=== PATIENT | male | born 1995 | race Caucasian/White ===

== ENCOUNTER 2017-06-29 20:53 | Emergency (ER) | payer OTHER ==
[2017-06-29 21:02] VITALS: BP 157/88; PULSE 81; TEMP 98.6; BMI 29.5
--- NOTE | 2017-06-29 21:02 | PDOC ---
Rapid Medical Evaluation Chief Complaint: Rash Time Seen by Provider: 06/29/17 21:01 Medical Evaluation: Allergies Allergy/AdvReac Type Severity Reaction Status Date / Time peanut [Peanut] Allergy Severe Difficulty Verified 06/29/17 20:59 Breathing No Known Drug Allergies Allergy Verified 06/29/17 20:59 I have performed a brief in-person evaluation of this patient. The patient presents with a chief complaint of: rash to right small toe. he thinks it's fungus Pertinent physical exam findings: none I have ordered the following: nothing The patient will proceed to the ED for further evaluation.
--- NOTE | 2017-06-29 21:33 | PDOC ---
History of Present Illness - General History Source: Patient Exam Limitations: No Limitations - History of Present Illness Initial Comments: 06/29/17 22:01 The patient is a 21 year old male with no significant PMH who presents to the emergency department with left toe pain for 1 day. The patient reports that he has been experiencing left fifth toe swelling. The patient also reports that he noticed a sort of skin abnormality on his left fifth toe. The patient denies any foot injury. He denies any pain at time of exam. 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 The patient reports that he experiences general sweating in his feet regularly. He reports that he only experienced pain to his left fifth toe when walking. The patient denies any numbness, weakness or tingling sensation in his foot. The patient denies any other complaints. <Arias Choudhary - Last Filed: 06/29/17 22:01> <Matilde Elias - Last Filed: 06/29/17 22:52> - General Chief Complaint: Rash Stated Complaint: PAIN Time Seen by Provider: 06/29/17 21:01 Past History <Arias Choudhary - Last Filed: 06/29/17 22:01> - Past Medical History Anemia: No Asthma: Yes COPD: No Diabetes: No HTN: No Seizures: No - Surgical History Abdominal Surgery: No - Suicide/Smoking/Psychosocial Hx Smoking Status: No Smoking History: Never smoked Have you smoked in the past 12 months: No Number of Cigarettes Smoked Daily: 0 Information on smoking cessation initiated: No Hx Alcohol Use: No Drug/Substance Use Hx: No Substance Use Type: Alcohol <Matilde Elias - Last Filed: 06/29/17 22:52> - Past Medical History Allergies/Adverse Reactions: Allergies Allergy/AdvReac Type Severity Reaction Status Date / Time peanut [Peanut] Allergy Severe Difficulty Verified 06/29/17 20:59 Breathing No Known Drug Allergies Allergy Verified 06/29/17 20:59 Home Medications: Ambulatory Orders Clotrimazole [Lotrimin 1% Cream -] 1 applic TP BID #1 tube 06/29/17 Review of Systems - Review of Systems Able to Perform ROS?: Yes Comments:: 06/29/17 22:04 General: No fevers or chills, no weakness, no weight loss HEENT: No change in vision. No sore throat,. No ear pain CardioVascular: No chest pain or shortness of breath Respiratory:No cough, or wheezing. Gastrointestinal: no nausea, vomiting, diarrhea or constipation, No rectal bleeding Genitourinary: No dysuria, hematuria, or frequency Musculoskeletal:(+)left toe pain and swelling. Neurologic: No headache, vertigo, dizziness or loss of consciousness Psychiatric: nor depression Skin: No rashes or easy bruising Endocrine: no increased thirst or abnormal weight change Allergic: no skin or latex allergy All other systems reviewed and normal <Arias Choudhary - Last Filed: 06/29/17 22:01> *Physical Exam - Vital Signs Last Vital Signs Temp Pulse Resp BP Pulse Ox 98.6 F 81 16 157/88 100 06/29/17 20:59 06/29/17 20:59 06/29/17 20:59 06/29/17 20:59 06/29/17 20:59 - Physical Exam Comments: 06/29/17 22:05 GENERAL: The patient is awake, alert, and fully oriented, in no acute distress. HEAD: Normal with no signs of trauma. EYES: Pupils equal, round and reactive to light, extraocular movements intact, sclera anicteric, conjunctiva clear. EXTREMITIES: (+)cracking under left 5th toe with fungus in skin. Normal range of motion. NEUROLOGICAL: Normal speech, normal gait. PSYCH: Normal mood, normal affect. SKIN: Warm, Dry, normal turgor, no rashes or lesions noted. <Arias Choudhary - Last Filed: 06/29/17 22:01> - Vital Signs Last Vital Signs Temp Pulse Resp BP Pulse Ox 98.6 F 81 16 157/88 100 06/29/17 20:59 06/29/17 20:59 06/29/17 20:59 06/29/17 20:59 06/29/17 20:59 <Matilde Elias - Last Filed: 06/29/17 22:52> Medical Decision Making - Medical Decision Making 06/29/17 22:51 A portion of this note was documented by scribe services under my direction. I have reviewed the details of the note, within reason, and agree with the documentation with the following case summary and management plan written by me. Correction to the history of present illness and physical exam, it is the right fifth pinky toe. Patient is a 21-year-old male who presents to emergency department for right fifth toe pressure. On exam patient has skin cracking under the right fifth toe consistent with athlete's foot. No other signs of infection or cellulitis. We'll discharge home with Lotramin cream and podiatry follow-up. Podiatry referral given. Return precautions given. Patient received all discharge instructions and all questions were answered. <Matilde Elias - Last Filed: 06/29/17 22:52> *DC/Admit/Observation/Transfer - Attestations Scribe Attestion: 06/29/17 22:05 Documentation prepared by Arias Choudhary, acting as medical van driver for BORIS Sandra. <Arias Choudhary - Last Filed: 06/29/17 22:01> - Discharge Dispostion Admit: No <Matilde Elias - Last Filed: 06/29/17 22:52> Diagnosis at time of Disposition: Athlete's foot on right - Discharge Dispostion Disposition: HOME Condition at time of disposition: Stable - Prescriptions Prescriptions: Clotrimazole [Lotrimin 1% Cream -] 1 applic TP BID #1 tube - Referrals Referrals: Lars Mims MD [Staff Physician] - - Patient Instructions Printed Discharge Instructions: DI for Athlete's Foot Additional Instructions: You have a fungal infection under your right fifth toe. Please use the clomitrazole cream twice a day for at least 2 weeks. Keep the foot and dry. You may use foot powders, change your socks. Rotate shoes or where shoes that breathe (mesh lining ex) If this is not getting better within 2 weeks please follow up with podiatry. A referral has been provided for you. Return to the emergency department if you develop worsening pain, fevers, chills , or have any changes in your symptoms.
== END 2017-06-29 21:41 | disposition home or self-care (01) ==
LOC: JERFT 20:53
DX: B35.3 Tinea pedis (principal)
CPT/HCPCS: 99281-25

== ENCOUNTER 2019-01-09 20:10 | Emergency (ER) | payer OTHER ==
[2019-01-09 20:22] VITALS: TEMP 98.7; BMI 34.7
[2019-01-09] MEDS ORDERED: SODIUM CHLORIDE 0.9% 500 ML INFUS.BAG IV ONE (22:43)
--- NOTE | 2019-01-09 23:05 | PDOC ---
History of Present Illness - General Chief Complaint: Pain Stated Complaint: ABD PAIN / FEVER Time Seen by Provider: 01/09/19 22:25 - History of Present Illness Initial Comments: Mr. Joseph is a 23 y/o male with no significant PMH presenting for subjective fever, abdominal pain, and diarrhea for the past two days. Reports that all of this started on Thursday. Reports pain in BLQ, worse in the RLQ. Denies sick contacts. Denies nausea/vomiting. Denies constipation. Denies chest pain/shortness of breath. Denies leg swelling. Denies urinary symptoms. SurgHx: No prior abdominal surgeries. SocHx: Smokes tobacco. Past History - Past Medical History Allergies/Adverse Reactions: Allergies Allergy/AdvReac Type Severity Reaction Status Date / Time peanut [Peanut] Allergy Severe Difficulty Verified 06/29/17 20:59 Breathing No Known Drug Allergies Allergy Verified 06/29/17 20:59 nut - unspecified Allergy Verified 01/09/19 20:16 Home Medications: Ambulatory Orders Clotrimazole [Lotrimin 1% Cream -] 1 applic TP BID #1 tube 06/29/17 Levofloxacin [Levaquin] 500 mg PO DAILY #7 tablet 01/10/19 Metronidazole 250 mg PO TID #21 tablet 01/10/19 Anemia: No Asthma: No COPD: No Diabetes: No HTN: No Seizures: No - Surgical History Abdominal Surgery: No - Psycho Social/Smoking Cessation Hx Smoking Status: No Smoking History: Current some day smoker Have you smoked in the past 12 months: No Number of Cigarettes Smoked Daily: 0 Information on smoking cessation initiated: Yes Hx Alcohol Use: Yes ("social") Drug/Substance Use Hx: No Substance Use Type: Alcohol Abd/GI Specific PMHX - Complaint Specific PMHX Colitis: No Diverticulitis: No Gall Bladder Disease: No GERD: No Hepatitis: No Irritable Bowel Synd (IBS): No Pancreatitis: No GI Ulcer Disease: No Review of Systems - Review of Systems Comments:: GENERAL/CONSTITUTIONAL: Reports fever and chills. No weakness._ HEAD, EYES, EARS, NOSE AND THROAT: No change in vision. No change in hearing. No sore throat._ CARDIOVASCULAR: No chest pain or shortness of breath_ RESPIRATORY: Denies cough, hemoptysis. GASTROINTESTINAL: No nausea, vomiting, constipation. Reports abdominal pain. Reports diarrhea. GENITOURINARY: No dysuria, frequency, or change in urination. MUSCULOSKELETAL: No joint or muscle swelling or pain. No neck or back pain._ SKIN: No rash_ NEUROLOGIC: No headache, vertigo, loss of consciousness, or change in strength/ sensation._ ENDOCRINE: No increased thirst. No abnormal weight change_ HEMATOLOGIC/LYMPHATIC: No anemia, easy bleeding, or history of blood clots._ ALLERGIC/IMMUNOLOGIC: No hives or skin allergy. *Physical Exam - Vital Signs Last Vital Signs Temp Pulse Resp BP Pulse Ox 98.7 F 109 H 20 134/86 96 01/09/19 20:16 01/09/19 20:16 01/09/19 20:16 01/09/19 20:16 01/09/19 20:16 - Physical Exam Comments: GENERAL: Awake, alert, and oriented to person/place/time, in no acute distress_ HEAD: No signs of trauma, normocephalic, atraumatic _ EYES: PERRLA, EOMI, sclera anicteric, conjunctiva clear_ ENT: Hearing grossly normal, nares patent, oropharynx clear without exudates. No uvular deviation. Moist mucosa_ NECK: Normal ROM, supple, no lymphadenopathy, JVD, or masses_ LUNGS: No distress, speaks in full sentences, clear to auscultation bilaterally _ HEART: Regular rate and rhythm, normal S1 and S2, no murmurs appreciated, peripheral pulses normal and equal bilaterally._ ABDOMEN: Soft, TTP RLQ > LLQ, normoactive bowel sounds. No guarding, no rebound. No masses_ EXTREMITIES: Normal inspection, Normal range of motion, no edema. No clubbing or cyanosis_ NEUROLOGICAL: Cranial nerves II through XII grossly intact. Normal speech, normal gait, no focal sensorimotor deficits _ SKIN: Warm, Dry, normal turgor, no rashes or lesions noted_ ED Treatment Course - LABORATORY CBC & Chemistry Diagram: 01/09/19 23:10 01/09/19 23:10 Medical Decision Making - Medical Decision Making 01/09/19 23:00 23M no PMH presenting with 2 days of fever, abdominal pain, diarrhea. No nausea/ vomiting. -cbc, cmp -fluids 01/09/19 23:50 Oral temp 102.8 -ct abd w/ IV contrast -tylenol 01/09/19 23:58 Labs reviewed. WBC wnl. 01/10/19 00:00 Pt signed out to Dr. De La Torre. Discharge - Discharge Information Problems reviewed: Yes Clinical Impression/Diagnosis: Abdominal pain Qualifiers: Abdominal location: lower abdomen, unspecified Qualified Code(s): R10.30 - Lower abdominal pain, unspecified Condition: Stable Disposition: HOME - Additional Discharge Information Prescriptions: Levofloxacin [Levaquin] 500 mg PO DAILY #7 tablet Metronidazole 250 mg PO TID #21 tablet - Follow up/Referral Referrals: [facility] [place] [facility] [Provider Group] Dayron Jay DO [Staff Physician] - - Patient Discharge Instructions Patient Printed Discharge Instructions: DI for Abdominal Pain-Adult Additional Instructions: You were evaluated and treated in the Emergency Department. You were provided a copy of your CT scan report. FOLLOW UP WITH YOUR PRIMARY CARE DOCTOR IN THE NEXT 1-3 DAYS. We have referred you to the [facility] should you need a primary care doctor; you may call and schedule an appointment at the number provided. FOLLOW UP WITH A GI DOCTOR IN THE NEXT 1-3 DAYS. We have referred you to Dr. Jay (GI) who you can call and schedule an appointment with. We sent medications to your pharmacy, [facility] and [place] in the [place]. Please pick them up and take as directed. IMMEDIATELY RETURN TO THE NEAREST EMERGENCY DEPARTMENT IF YOU EXPERIENCE: - WORSENING PAIN AND/OR SYMPTOMS - HIGH FEVER - INABILITY TO EAT OR DRINK - ANYTHING THAT CONCERNS YOU - Post Discharge Activity Work/Back to School Note: Back to Work
--- NOTE | 2019-01-09 23:18 | PDOC ---
Documentation entered by Elsa Meza SCRIBE, acting as scribe for Gina Santos MD. Gina Santos MD: This documentation has been prepared by the anandibe, Elsa Meza SCRIBE, under my direction and personally reviewed by me in its entirety. I confirm that the documentation accurately reflects all work, treatment, procedures, and medical decision making performed by me. Attending Attestation - Resident Resident Name: Khoa Ham - ED Attending Attestation I have performed the following: I have examined & evaluated the patient, The case was reviewed & discussed with the resident, I agree w/resident's findings & plan, Exceptions are as noted - HPI HPI: 01/09/19 23:04 The patient is a 23-year-old male with no significant past medical history who presents to the emergency department with 2 days of diarrhea, abdominal pain, and subjective fever. The patient presents with intermittent episodes of RLQ pain thats aggravated with turning to the side, associated with diarrhea and subjective fever. The patient reports he has episodes of loose stool, denies melena or hematochezia. The patient reports he was seen at an Urgent Care from where he was sent to the ER for r/o appendicitis. Denies nausea, vomiting, sick contact, or abdominal surgeries. - Physicial Exam PE: 01/09/19 23:08 GENERAL: Well-appearing, well-nourished. No apparent distress. HEENT: Normocephalic, atraumatic. PERRL, EOM intact. NECK: supple , no JVD. CARDIOVASCULAR: Normal S1, S2. Regular rate and rhythm. PULMONARY: Clear to auscultation bilaterally. ABDOMEN: Soft, non-distended, non-tender. No rebound or guarding. No flank pain. EXTREMITIES: Normal ROM in all four extremities. No gross deformities. SKIN: Warm, dry. No rash NEUROLOGICAL: No focal neurological deficits. - Medical Decision Making 01/09/19 23:55 Repeat temp is 102.8 orally and Tylenol was given ct scan abd/pel pending 01/10/19 02:12 CAT scan of the abd/pel did not show any appendicitis but did show moderate right-sided colitis, no abscess Patient does not have any rebound or guarding on his exam. He did has no nausea or vomiting. He is able to take p.o. antibiotics I discussed with him that he should return if he has continued fever or any worsening symptoms We will give him a GI referral and also a number to our internal medicine group as he does not have a primary care provider at this time After I discussed the ct scan findings of colitis he mentioned he was kirk and had recent anal intercourse. He states he always uses protection ,I offered HIV testing but he declined tonight because his family members were hovering and he felt uncomfortable
[2019-01-09 23:21] LABS: BASO % 0.3 % (0-2.0); EOS % 0.2 % (0-4.5); HEMATOCRIT 43.1 % (35.4-49); HEMOGLOBIN 14.5 GM/dL (11.7-16.9); LYMPH % 11.4 % (8-40); MCH 29.4 pg (25.7-33.7); MCHC 33.6 g/dl (32.0-35.9); MEAN CELL VOLUME 87.5 fl (80-96); NEUT % 76.1 % (42.8-82.8); PLATELET COUNT 183 K/MM3 (134-434); RBC 4.92 M/mm3 (4.00-5.60); RDW 13.3 % (11.9-15.9); WHITE BLOOD COUNT 9.7 K/mm3 (4.0-10.0)
[2019-01-09 23:40] LABS: ALBUMIN 3.6 g/dl (3.4-5.0); BILIRUBIN,TOTAL 1.5 mg/dL (0.2-1); CALCIUM 8.3 mg/dL (8.5-10.1); CREATININE 0.9 mg/dL (0.55-1.3); POTASSIUM 3.9 mmol/L (3.5-5.1); TOT PROT 6.9 g/dl (6.4-8.2)
[2019-01-09] MEDS ORDERED: ACETAMINOPHEN 1000 MG/100 ML VIAL (NON FORMULARY) IVPB ONE (23:51)
--- NOTE | 2019-01-10 00:01 | PDOC ---
*Physical Exam - Vital Signs Last Vital Signs Temp Pulse Resp BP Pulse Ox 98.7 F 109 H 20 134/86 96 01/09/19 20:16 01/09/19 20:16 01/09/19 20:16 01/09/19 20:16 01/09/19 20:16 ED Treatment Course - LABORATORY CBC & Chemistry Diagram: 01/09/19 23:10 01/09/19 23:10 - ADDITIONAL ORDERS Additional order review: Laboratory Results 01/09/19 23:10 Sodium 137 Potassium 3.9 Chloride 103 Carbon Dioxide 28 Anion Gap 5 L BUN 13.0 Creatinine 0.9 Est GFR (CKD-EPI)AfAm 138.06 Est GFR (CKD-EPI)NonAf 119.12 Random Glucose 92 Calcium 8.3 L Total Bilirubin 1.5 H AST 24 ALT 23 Alkaline Phosphatase 86 Total Protein 6.9 Albumin 3.6 01/09/19 23:10 RBC 4.92 MCV 87.5 MCHC 33.6 RDW 13.3 MPV 9.0 Neutrophils % 76.1 Lymphocytes % 11.4 D Monocytes % 12.0 H D Eosinophils % 0.2 Basophils % 0.3 D - Medications Given in the ED: ED Medications Discontinued Medications Generic Name Dose Route Start Last Admin Trade Name Freq PRN Reason Stop Dose Admin Sodium Chloride 1,000 ml 01/09/19 22:43 01/09/19 23:17 Normal Saline - IV 01/09/19 22:44 1,000 ml ONCE ONE Administration Medical Decision Making - Medical Decision Making 01/09/19 23:59 sign out received by day team b/l TTP lower R > L - CT a/p - Dispo pending 01/10/19 02:20 CT A/P IMPRESSION: FINDINGS: Lung bases are clear. The visualized cardiac chambers are normal size and configuration. Normal liver, gallbladder, pancreas, spleen, adrenal glands and kidneys. The stomach and small bowel are normal. There is mild inflammation of the cecum and the ascending colon which could be due to infection or inflammatory bowel disease. Mesenteric adenopathy is likely reactive to colitis. No bowel obstruction, abscess or free air. There is no aortic aneurysm. There is no significant retroperitoneal lymphadenopathy. The appendix is normal. The urinary bladder and prostate gland are normal. No pelvic free fluid is identified. There is no significant pelvic lymphadenopathy. IMPRESSION: Moderate right-sided colitis, without secondary complication could be due to infection or Crohn's disease. ED team discussed findings w/ patient who brought up sexual activity w/ condoms. Not interested in HIV testing tonight. Will give flagyl and levaquin here DC home w/ GI and PCP referral and follow up; strict return precautions Flagyl and levaquin sent to pharmacy Discharge - Discharge Information Problems reviewed: Yes Clinical Impression/Diagnosis: Abdominal pain Qualifiers: Abdominal location: lower abdomen, unspecified Qualified Code(s): R10.30 - Lower abdominal pain, unspecified Condition: Stable Disposition: HOME - Admission No - Additional Discharge Information Prescriptions: Levofloxacin [Levaquin] 500 mg PO DAILY #7 tablet Metronidazole 250 mg PO TID #21 tablet - Follow up/Referral Referrals: Dayron Jay DO [Staff Physician] - [facility] [place] [facility] [place] [Provider Group] - Patient Discharge Instructions Patient Printed Discharge Instructions: DI for Abdominal Pain-Adult Additional Instructions: You were evaluated and treated in the Emergency Department. You were provided a copy of your CT scan report. FOLLOW UP WITH YOUR PRIMARY CARE DOCTOR IN THE NEXT 1-3 DAYS. We have referred you to the [facility] should you need a primary care doctor; you may call and schedule an appointment at the number provided. FOLLOW UP WITH A GI DOCTOR IN THE NEXT 1-3 DAYS. We have referred you to Dr. Jay (GI) who you can call and schedule an appointment with. We sent medications to your pharmacy, [facility] and [place] in the [place]. Please pick them up and take as directed. IMMEDIATELY RETURN TO THE NEAREST EMERGENCY DEPARTMENT IF YOU EXPERIENCE: - WORSENING PAIN AND/OR SYMPTOMS - HIGH FEVER - INABILITY TO EAT OR DRINK - ANYTHING THAT CONCERNS YOU - Post Discharge Activity Work/Back to School Note: Back to Work
[2019-01-10] MEDS ORDERED: ACETAMINOPHEN INJECTION 100 ML IVPB ONE (00:02)
[2019-01-10] MEDS ORDERED: metroNIDAZOLE 250 MG TABLET PO ONE (02:20)
[2019-01-10] MEDS ORDERED: metroNIDAZOLE 250 MG TABLET ONE (02:49)
[2019-01-10 03:56] VITALS: BP 131/80; PULSE 94
== END 2019-01-10 03:00 | disposition home or self-care (01) ==
LOC: JER 20:10
PROC: 3E033NZ Introduction of Analgesics, Hypnotics, Sedatives into Peripheral Vein, Percutaneous Approach (ICD-10-PCS; principal; 2019-01-09)
DX: K52.9 Noninfective gastroenteritis and colitis, unspecified (principal); Z91.010 Allergy to peanuts
CPT/HCPCS: 36415; 74177-TC; 80053; 85025; 99283-25; J0131